=== PATIENT | female | born 1965 | race Hispanic/Latino ===

== ENCOUNTER 2018-07-03 12:45 | Outpatient (CLI) | payer MEDICARE, OTHER | END 2018-07-03 12:46 | disposition home or self-care (01) | LOC: RAD 12:46 | DX: Z12.31 Encounter for screening mammogram for malignant neoplasm of breast (principal); N92.6 Irregular menstruation, unspecified ==

== ENCOUNTER 2018-07-18 11:48 | Outpatient (CLI) | payer MEDICARE, OTHER | END 2018-07-18 11:49 | disposition home or self-care (01) | LOC: RAD 11:48 ==